=== PATIENT | male | born 1985 | race Caucasian/White ===

== ENCOUNTER 2019-02-19 00:30 | Emergency (ER) | payer OTHER ==
[~2019-02-19] VITALS: Ht 213 cm; Wt 143.0 kg
--- NOTE | 2019-02-19 00:41 | ED GI ---
General Chief Complaint: Abdominal/GI Problems Stated Complaint: ABD PAIN,VOMITING History of Present Illness Date Seen by Provider: Feb 19, 2019 Time Seen by Provider: 00:40 Initial Comments 34-year-old male presents with generalized body aches, abdominal cramping, nausea, any vomiting, diarrhea. Reports it started about 4 days ago. States that he "can't keep anything down" denies cough, shortness of breath, chest pain any other systemic complaints Allergies and Home Medications Allergies Coded Allergies: No Known Drug Allergies (Unverified , 02/19/19) Home Medications Ondansetron 4 Mg Tab.rapdis, 4 MG PO Q6H PRN for NAUSEA/VOMITING Prescribed by: JORGE CUNNINGHAM on 02/19/19 0155 Patient Home Medication List Home Medication List Reviewed: Yes Review of Systems Review of Systems Constitutional: No chills, No fever; malaise Respiratory: Denies Cough, Denies SOA at Rest Cardiovascular: Denies Chest Pain Gastrointestinal: Abdominal Pain, Diarrhea, Nausea, Vomiting Musculoskeletal: see HPI Skin: see HPI Psychiatric/Neurological: See HPI Endocrine: See HPI Past Mlwrdlj-Sldyii-Ogable Hx Past Med/Social Hx: Reviewed Nursing Past Med/Soc Hx Patient Social History Recent Foreign Travel: No Contact w/Someone Who Travel: No Physical Exam Vital Signs Vital Signs - First Documented 02/19/19 00:41 Temp 36.5 Pulse 111 Resp 18 B/P (MAP) 152/90 (110) Pulse Ox 96 O2 Delivery Room Air Capillary Refill : Height/Weight/BMI Height: '" Weight: lbs. oz. kg; BMI Method: General Appearance: no apparent distress Neck: full range of motion, supple Respiratory: chest non-tender Cardiovascular: normal peripheral pulses, regular rate, rhythm Gastrointestinal: soft, tenderness (generalized) Extremities: non-tender, normal inspection Neurologic/Psychiatric: director of revenue II-XII nml as tested, normal mood/affect Skin: normal color, warm/dry Progress/Results/Core Measures Results/Orders Lab Results Laboratory Tests Test 02/19/19 00:50 Range/Units White Blood Count 9.6 4.3-11.0 10^3/uL Red Blood Count 6.44 H 4.35-5.85 10^6/uL Hemoglobin 18.5 H 13.3-17.7 G/DL Hematocrit 51 40-54 % Mean Corpuscular Volume 79 L 80-99 FL Mean Corpuscular Hemoglobin 29 25-34 PG Mean Corpuscular Hemoglobin Concent 36 32-36 G/DL Red Cell Distribution Width 12.8 10.0-14.5 % Platelet Count 273 130-400 10^3/uL Mean Platelet Volume 10.6 H 7.4-10.4 FL Neutrophils (%) (Auto) 71 42-75 % Lymphocytes (%) (Auto) 18 12-44 % Monocytes (%) (Auto) 7 0-12 % Eosinophils (%) (Auto) 3 0-10 % Basophils (%) (Auto) 1 0-10 % Neutrophils # (Auto) 6.9 1.8-7.8 X 10^3 Lymphocytes # (Auto) 1.7 1.0-4.0 X 10^3 Monocytes # (Auto) 0.7 0.0-1.0 X 10^3 Eosinophils # (Auto) 0.3 0.0-0.3 10^3/uL Basophils # (Auto) 0.1 0.0-0.1 10^3/uL Sodium Level 132 L 135-145 MMOL/L Potassium Level 5.3 H 3.6-5.0 MMOL/L Chloride Level 94 L 98-107 MMOL/L Carbon Dioxide Level 26 21-32 MMOL/L Anion Gap 12 5-14 MMOL/L Blood Urea Nitrogen 18 7-18 MG/DL Creatinine 0.81 0.60-1.30 MG/DL Estimat Glomerular Filtration Rate > 60 BUN/Creatinine Ratio 22 Glucose Level 359 H 70-105 MG/DL Calcium Level 8.9 8.5-10.1 MG/DL Corrected Calcium 8.5-10.1 MG/DL Total Bilirubin 2.0 H 0.1-1.0 MG/DL Aspartate Amino Transf (AST/SGOT) 35 H 5-34 U/L Alanine Aminotransferase (ALT/SGPT) 32 0-55 U/L Alkaline Phosphatase 71 40-136 U/L Total Protein 7.5 6.4-8.2 GM/DL Albumin 4.7 H 3.2-4.5 GM/DL Lipase 35 8-78 U/L My Orders Orders - CUNNINGHAM,JORGE L DO Cbc With Automated Diff (02/19/19 00:43) Comprehensive Metabolic Panel (02/19/19 00:43) Lipase (02/19/19 00:43) Acute Abd Series (02/19/19 00:43) Ondansetron Injection (Zofran Injectio (02/19/19 00:45) Ns Iv 1000 Ml (Sodium Chloride 0.9%) (02/19/19 00:43) Ed Iv/Invasive Line Start (02/19/19 00:43) Medications Given in ED Current Medications Medications Dose Ordered Sig/Jayy Route Start Time Stop Time Status Last Admin Dose Admin Ondansetron HCl 4 mg ONCE ONCE IVP 02/19/19 00:45 02/19/19 00:46 DC 02/19/19 00:50 4 MG Vital Signs/I&O 02/19/19 00:41 Temp 36.5 Pulse 111 Resp 18 B/P (MAP) 152/90 (110) Pulse Ox 96 O2 Delivery Room Air Departure Impression Primary Impression: Viral gastroenteritis Additional Impression: Mild dehydration Disposition: HOME, SELF-CARE Condition: Stable Departure-Patient Inst. Referrals: BRADLEY MARTÍNEZ MD (PCP/Family) Primary Care Physician Patient Instructions: Viral Gastroenteritis, Adult (DC), Dehydration, Adult (DC) Add. Discharge Instructions: The Emergency Department focuses on treating and ruling out life-threatening diseases. Whenever possible, a diagnosis is given. However most patient's are given an impression based on the history, physical exam, and workup during their brief time in the ER. Information about probable diagnosis and other educational material has been provided. Please take the time to read and understand this information. It is very important that he follow up with a doctor as discussed during her visit today. Failure to adhere to your follow-up instructions may result in severe disability, injury or so please make sure to keep your appointments. Please keep in mind the emergency department is not designed to be your primary care or "family doctor" and not urgent issues are best evaluated by an outpatient physician All discharge instructions reviewed with patient and/or family. Voiced understanding. Scripts Ondansetron (Ondansetron Odt) 4 Mg Tab.rapdis 4 MG PO Q6H PRN for NAUSEA/VOMITING, #30 TAB Prov: JORGE CUNNINGHAM DO 02/19/19 Work/School Note: Work Release Form Date Seen in the Emergency Department: D 2018 Return to Work: Feb 20, 2019 JORGE CUNNINGHAM DO Feb 19, 2019 00:41 POS
[2019-02-19] MEDS ORDERED: NS IV 1000 ML 1,000 ML IV STA (00:43)
[2019-02-19] MEDS ORDERED: ONDANSETRON 4 MG/2 ML (SDV) Z0FRAN IVP ONE (00:45)
[2019-02-19 01:07] LABS: BASOPHILS % (AUTO) 1 % (0-10); EOSINOPHILS % (AUTO) 3 % (0-10); HEMATOCRIT 51 % (40-54); HEMOGLOBIN 18.5 G/DL (13.3-17.7); LYMPHOCYTES % (AUTO) 18 % (12-44); MEAN CORPUSCULAR HEMOGLOBIN 29 PG (25-34); MEAN CORPUSCULAR HGB CONC 36 G/DL (32-36); MEAN CORPUSCULAR VOLUME 79 FL (80-99); MEAN PLATELET VOLUME 10.6 FL (7.4-10.4); MONOCYTES % (AUTO) 7 % (0-12); NEUTROPHILS % (AUTO) 71 % (42-75); PLATELET COUNT 273 10^3/uL (130-400); RED CELL DISTRIBUTION WIDTH 12.8 % (10.0-14.5); WHITE BLOOD COUNT 9.6 10^3/uL (4.3-11.0)
[2019-02-19 01:08] LABS: BASOPHILS # (AUTO) 0.1 10^3/uL (0.0-0.1); EOSINOPHILS # (AUTO) 0.3 10^3/uL (0.0-0.3); LYMPHOCYTES # (AUTO) 1.7 X 10^3 (1.0-4.0); MONOCYTES # (AUTO) 0.7 X 10^3 (0.0-1.0); NEUTROPHILS # (AUTO) 6.9 X 10^3 (1.8-7.8)
[2019-02-19 01:24] LABS: ALANINE AMINOTRANSFERASE 32 U/L (0-55); ALBUMIN 4.7 GM/DL (3.2-4.5); ALKALINE PHOSPHATASE 71 U/L (40-136); BUN/CREATININE RATIO 22; CALCIUM 8.9 MG/DL (8.5-10.1); CARBON DIOXIDE 26 MMOL/L (21-32); CHLORIDE 94 MMOL/L (98-107); CREATININE SERUM 0.81 MG/DL (0.60-1.30); GFR ESTIMATED > 60; GLUCOSE 359 MG/DL (70-105); LIPASE 35 U/L (8-78); POTASSIUM 5.3 MMOL/L (3.6-5.0); SODIUM 132 MMOL/L (135-145); TOTAL PROTEIN 7.5 GM/DL (6.4-8.2)
[2019-02-19] MEDS ORDERED: ONDA4TAB11 PO (01:55)
[2019-02-19 02:00] VITALS: BP 144/92
--- NOTE | 2019-02-19 05:49 | Diagnostic Imaging Report ---
CLINICAL INDICATION: Patient had nausea, vomiting, diarrhea x4 days with diffuse abdominal pain. EXAMS: X-ray of the chest PA view and x-ray of the abdomen supine and upright views. COMPARISONS: None. FINDINGS: LUNGS/ PLEURA: Lungs are clear. There is no pneumothorax. There is no pleural effusion. MEDIASTINUM: Unremarkable. PULMONARY VASCULATURE: Unremarkable. HEART: Unremarkable. BONES/ EXTRATHORACIC SOFT TISSUE: Unremarkable. ABDOMEN AND PELVIS: There are mildly air distended loops of small bowel overlying the right and left abdominal regions. There is multiple air-fluid levels seen. There is air seen across the colon and in the rectal region. There is no evidence of abdominal free air. There are no focal calcifications overlying the expected regions/ pathways of both kidneys, ureters, and bladder regions. IMPRESSION: 1: Nonspecific bowel gas pattern with mildly air distended loops of small bowel with air-fluid levels. There is also air within the colon and rectum. These findings may be related to gastroenteritis versus partial small bowel obstruction or mild ileus. 2: There is no radiographic evidence of acute cardiopulmonary process. Dictated by: Dictated on workstation # [id number]
--- OUTSIDE RECORDS SUMMARY | 2019-03-16 21:00 | XMS REPORT | Continuity of Care Document ---
Author Organization Unknown Address Unknown Phone Unavailable Allergies Active Description Code Type Severity Reaction Onset Reported/Identified Relationship to Patient Clinical Status Yes No Known Drug Allergies [id number] Drug Allergy Unknown N/A 02/19/2019 Medications There is no data. Problems Date Dx Coded Attending Type Code Diagnosis Diagnosed By 02/19/2019 CUNNINGHAM DO, JORGE L Ot A08.4 VIRAL INTESTINAL INFECTION, UNSPECIFIED 02/19/2019 CUNNINGHAM DO, JORGE L Ot E86.0 DEHYDRATION 02/19/2019 CUNNINGHAM DO, JORGE L Ot R11.2 NAUSEA WITH VOMITING, UNSPECIFIED Procedures There is no data. Results Test Result Range LIPID PANEL - 12/01/18 10:54 CHOLESTEROL, TOTAL 174 mg/dL <200 HDL CHOLESTEROL 51 mg/dL >40 TRIGLYCERIDES 138 mg/dL <150 LDL-CHOLESTEROL 99 mg/dL (calc) NRG CHOL/HDLC RATIO 3.4 (calc) <5.0 NON HDL CHOLESTEROL 123 mg/dL (calc) <13 0 CMP - 12/01/18 10:54 GLUCOSE 379 mg/dL 65-99 UREA NITROGEN (BUN) 16 mg/dL 7-25 CREATININE 0.86 mg/dL 0.60-1.35 eGFR NON-AFR. [place] 115 mL/min/1.73m2 > OR = 60 eGFR 133 mL/min/1.73m2 > OR = 60 BUN/CREATININE RATIO NOT APPLICABLE (calc) 6-22 SODIUM 133 mmol/L 135-146 POTASSIUM 4.6 mmol/L 3.5-5.3 CHLORIDE 97 mmol/L 98-110 CARBON DIOXIDE 28 mmol/L 20-32 CALCIUM 9.8 mg/dL 8.6-10.3 PROTEIN, TOTAL 6.9 g/dL 6.1-8.1 ALBUMIN 4.7 g/dL 3.6-5.1 GLOBULIN 2.2 g/dL (calc) 1.9-3.7 ALBUMIN/GLOBULIN RATIO 2.1 (calc) 1.0-2. 5 BILIRUBIN, TOTAL 2.4 mg/dL 0.2-1.2 ALKALINE PHOSPHATASE 69 U/L 40-115 AST 17 U/L 10-40 ALT 32 U/L 9-46 CBC w/MANUAL DIFF - 12/01/18 10:54 WHITE BLOOD CELL COUNT 6.8 Thousand/uL 3 .8-10.8 RED BLOOD CELL COUNT 6.23 Million/uL 4.2 0-5.80 HEMOGLOBIN 17.8 g/dL 13.2-17.1 HEMATOCRIT 52.9 % 38.5-50.0 MCV 84.9 fL 80.0-100.0 MCH 28.6 pg 27.0-33.0 MCHC 33.6 g/dL 32.0-36.0 RDW 12.8 % 11.0-15.0 PLATELET COUNT 250 Thousand/uL 140-400 MPV 10.7 fL 7.5-12.5 ABSOLUTE NEUTROPHILS 3808 cells/uL 1500- 7800 ABSOLUTE MONOCYTES 476 cells/uL 200-950 ABSOLUTE EOSINOPHILS 204 cells/uL 15-500 ABSOLUTE BASOPHILS 136 cells/uL 0-200 NEUTROPHILS 56 % NRG LYMPHOCYTES 32 % NRG MONOCYTES 7 % NRG EOSINOPHILS 3 % NRG BASOPHILS 2 % NRG ABSOLUTE LYMPHOCYTES 2176 cells/uL 850-3 900 PLATELET ESTIMATION ADEQUATE ADEQUATE CBC MORPHOLOGY NORMAL A1C - 12/01/18 10:54 HEMOGLOBIN A1c 12.0 % of total Hgb <5.7 TEST AUTHORIZATION - 12/01/18 10:54 TEST NAME: HEMOGLOBIN A1c [facility] TEST CODE: 496SB [facility] CLIENT CONTACT: BRADY AMILCAR [facility] REPORT ALWAYS MESSAGE SIGNATURE NR COMMENT NRG Complete blood count (CBC) with automate d white blood cell (WBC) differential - 02/19/19 00:50 Blood leukocytes automated count (number/volume) 9.6 10*3/uL 4.3-11.0 Blood erythrocytes automated count (number/volume) 6.44 10*6/uL 4.35-5.85 Venous blood hemoglobin measurement (mass/volume) 18.5 g/dL 13.3-17.7 Blood hematocrit (volume fraction) 51 % 40-54 Automated erythrocyte mean corpuscular volume 79 [ foz_us] 80-99 Automated erythrocyte mean corpuscular h emoglobin (mass per erythrocyte) 29 pg 25-34 Automated erythrocyte mean corpuscular h emoglobin concentration measurement (mass/volume) 36 g/dL 32-36 Automated erythrocyte distribution width ratio 12. 8 % 10.0- 14.5 Automated blood platelet count (count/volume) 273 10*3/uL 130-400 Automated blood platelet mean volume measurement 10.6 [foz_us] 7.4-10.4 Automated blood neutrophils/100 leukocytes 71 % 42-75 Automated blood lymphocytes/100 leukocytes 18 % 12-44 Blood monocytes/100 leukocytes 7 % 0-12 Automated blood eosinophils/100 leukocytes 3 % 0-10 Automated blood basophils/100 leukocytes 1 % 0-10 Blood neutrophils automated count (number/volume) 6.9 10*3 1.8-7.8 Blood lymphocytes automated count (number/volume) 1.7 10*3 1.0-4.0 Blood monocytes automated count (number/volume) 0. 7 10*3 0.0-1.0 Automated eosinophil count 0.3 10*3/uL 0 .0-0.3 Automated blood basophil count (count/volume) 0.1 10*3/uL 0.0-0.1 Comprehensive metabolic panel - 02/19/19 00:50 Serum or plasma sodium measurement (moles/volume) 132 mmol/L 135-145 Serum or plasma potassium measurement (moles/volume) 5.3 mmol/L 3.6-5.0 Serum or plasma chloride measurement (moles/volume) 94 mmol/L 98-107 Carbon dioxide 26 mmol/L 21-32 Serum or plasma anion gap determination (moles/volume) 12 mmol/L 5-14 Serum or plasma urea nitrogen measurement (mass/volume ) 18 mg/dL 7-18 Serum or plasma creatinine measurement (mass/volume) 0.81 mg/dL 0.60-1.30 Serum or plasma urea nitrogen/creatinine mass ratio 22 NRG Serum or plasma creatinine measurement w ith calculation of estimated glomerular filtration rate > NRG Serum or plasma glucose measurement (mass/volume) 359 mg/dL 70-105 Serum or plasma calcium measurement (mass/volume) 8.9 mg/dL 8.5-10.1 Serum or plasma total bilirubin measurement (mass/volu me) 2.0 mg/dL 0.1-1.0 Serum or plasma alkaline phosphatase tess surement (enzymatic activity/volume) 71 U/L 40-136 Serum or plasma aspartate aminotransfera se measurement (enzymatic activity/volume) 35 U/L 5-34 Serum or plasma alanine aminotransferase measurement (enzymatic activity/volume) 32 U/L 0-55 Serum or plasma protein measurement (mass/volume) 7.5 g/dL 6.4-8.2 Serum or plasma albumin measurement (mass/volume) 4.7 g/dL 3.2-4.5 Lipase - 02/19/19 00:50 Lipase 35 U/L 8-78 Encounters ACCT No. Visit Date/Time Discharge Status Pt. Type Provider Facility Loc./Unit Complaint [id number] 12/01/2018 11:40:00 12/01/2018 23:59: 59 CLS Outpatient BRADLEY MARTÍNEZ [facility] [id number] 12/01/2018 11:20:00 Document Registration [id number] 02/19/2019 00:34:00 019 02:00:00 DIS Emergency JORGE CUNNINGHAM DO Via [facility] ER FS ABD PAIN,VOMITING
== END 2019-02-19 02:00 | disposition home or self-care (01) ==
LOC: ER FS 00:34
DX: A08.4 Viral intestinal infection, unspecified (principal); E86.0 Dehydration
CPT/HCPCS: 36415; 74022; 80053; 83690; 85025; 96361; 96374

== ENCOUNTER → 2019-08-31 | Outpatient (CLI) | payer SELFPAY ==
[~2019-08-31] MED LIST: ONDA4TAB11 PO
== END ==
LOC: WOUNDCARE 09:37
PROVIDERS: ATTEND Surgery
DX: E11.621 Type 2 diabetes mellitus with foot ulcer (principal); E11.42 Type 2 diabetes mellitus with diabetic polyneuropathy; L97.512 Non-pressure chronic ulcer of other part of right foot with fat layer exposed; M14.671 Charcot's joint, right ankle and foot
CPT/HCPCS: 11042; A6260; G0463

== ENCOUNTER → 2019-09-07 | Outpatient (CLI) | payer SELFPAY | LOC: WOUNDCARE 10:35 | PROVIDERS: ATTEND Surgery | DX: E11.621 Type 2 diabetes mellitus with foot ulcer (principal); E11.42 Type 2 diabetes mellitus with diabetic polyneuropathy; L97.512 Non-pressure chronic ulcer of other part of right foot with fat layer exposed; M14.671 Charcot's joint, right ankle and foot; E11.52 Type 2 diabetes mellitus with diabetic peripheral angiopathy with gangrene | CPT/HCPCS: 11042 ==

== ENCOUNTER 2019-10-25 23:15 | Emergency (ER) | payer SELFPAY ==
[~2019-10-25] VITALS: Ht 213.4 cm; Wt 143.1 kg
--- OUTSIDE RECORDS SUMMARY | 2019-10-25 23:24 | XMS REPORT | Continuity of Care Document ---
Author Organization Unknown Address Unknown Phone Unavailable Allergies Active Description Code Type Severity Reaction Onset Reported/Identified Relationship to Patient Clinical Status Yes No Known Drug Allergies [id number] Drug Allergy Unknown N/A 02/19/2019 Medications There is no data. Problems Date Dx Coded Attending Type Code Diagnosis Diagnosed By 02/19/2019 BRITTANIE CUNNINGHAM DOVOR L Ot A08.4 VIRAL INTESTINAL INFECTION, UNSPECIFIED 02/19/2019 CUNNINGHAM DO JORGE L Ot E86.0 DEHYDRATION 02/19/2019 OCTAVIO BRAR JORGE L Ot R11.2 NAUSEA WITH VOMITING, UNSPECIFIED 09/09/2019 ANGE LOGAN MD, Ot E11.42 TYPE 2 DIABETES MELLITUS WITH DIABETIC P 09/09/2019 ANGE LOGAN MD Ot E11.52 TYPE 2 DIABETES W DIABETIC PERIPHERAL AN 09/09/2019 ANGE LOGAN MD, Ot E11.621 TYPE 2 DIABETES MELLITUS WITH FOOT ULCER 09/09/2019 ANGE LOGAN MD, Ot L97.512 NON-PRS CHRONIC ULCER OTH PRT RIGHT FOOT 09/09/2019 ANGE LOGAN MD, Ot M14.671 CHARCOT'S JOINT, RIGHT ANKLE AND FOOT 09/30/2019 ANGE LOGAN MD Ot E11.42 TYPE 2 DIABETES MELLITUS WITH DIABETIC P 09/30/2019 ANGE LOGAN MD Ot E11.610 TYPE 2 DIABETES MELLITUS W DIABETIC NEUR 09/30/2019 ANGE LOGAN MD Ot E11.621 TYPE 2 DIABETES MELLITUS WITH FOOT ULCER 09/30/2019 ANGE LOGAN MD Ot L97.512 NON-PRS CHRONIC ULCER OTH PRT RIGHT FOOT 10/25/2019 ANGE LOGAN MD, Ot E11.42 TYPE 2 DIABETES MELLITUS WITH DIABETIC P 10/25/2019 ANGE LOGAN MD Ot E11.621 TYPE 2 DIABETES MELLITUS WITH FOOT ULCER 10/25/2019 ANGE LOGAN MD Ot L97.512 NON-PRS CHRONIC ULCER OTH PRT RIGHT FOOT 10/25/2019 ANGE LOGAN MD, Ot M14.671 CHARCOT'S JOINT, RIGHT ANKLE AND FOOT 10/25/2019 ANGE LOGAN MD, Ot E11.42 TYPE 2 DIABETES MELLITUS WITH DIABETIC P 10/25/2019 ANGE LOGAN MD, Ot E11.52 TYPE 2 DIABETES W DIABETIC PERIPHERAL AN 10/25/2019 ANGE LOGAN MD, Ot E11.621 TYPE 2 DIABETES MELLITUS WITH FOOT ULCER 10/25/2019 ANGE LOGAN MD, Ot L97.512 NON-PRS CHRONIC ULCER OTH PRT RIGHT FOOT 10/25/2019 ANGE LOGAN MD, Ot M14.671 CHARCOT'S JOINT, RIGHT ANKLE AND FOOT 10/25/2019 ANGE LOGAN MD, Ot E11.42 TYPE 2 DIABETES MELLITUS WITH DIABETIC P 10/25/2019 ANGE LOGAN MD, Ot E11.610 TYPE 2 DIABETES MELLITUS W DIABETIC NEUR 10/25/2019 ANGE LOGAN MD, Ot E11.621 TYPE 2 DIABETES MELLITUS WITH FOOT ULCER 10/25/2019 ANGE LOGAN MD, Ot L97.512 NON-PRS CHRONIC ULCER OTH PRT RIGHT FOOT Procedures There is no data. Results Test [...] 7-25 CREATININE 0.86 mg/dL 0.60-1.35 eGFR NON-AFR. [place] 115 mL/min/1.73m2 > OR = 60 eGFR [...] - 12/01/18 10:54 TEST NAME: HEMOGLOBIN A1c [facility] TEST CODE: 496SB [facility] CLIENT CONTACT: BRADY FITZGERALD [facility] REPORT ALWAYS MESSAGE SIGNATURE NR COMMENT NRG [...] - 02/19/19 00:50 Lipase 35 U/L 8-78 A1C - 08/13/19 08:28 HEMOGLOBIN A1c 11.1 % of total Hgb <5.7 CBC - 08/27/19 09:45 WHITE BLOOD CELL COUNT 6.7 Thousand/uL 3 .8-10.8 RED BLOOD CELL COUNT 5.63 Million/uL 4.2 0-5.80 HEMOGLOBIN 16.2 g/dL 13.2-17.1 HEMATOCRIT 47.6 % 38.5-50.0 MCV 84.5 fL 80.0-100.0 MCH 28.8 pg 27.0-33.0 MCHC 34.0 g/dL 32.0-36.0 RDW 13.0 % 11.0-15.0 PLATELET COUNT 216 Thousand/uL 140-400 MPV 10.7 fL 7.5-12.5 ABSOLUTE NEUTROPHILS 4529 cells/uL 1500- 7800 ABSOLUTE LYMPHOCYTES 1608 cells/uL 850-3 900 ABSOLUTE MONOCYTES 382 cells/uL 200-950 ABSOLUTE EOSINOPHILS 141 cells/uL 15-500 ABSOLUTE BASOPHILS 40 cells/uL 0-200 NEUTROPHILS 67.6 % NRG LYMPHOCYTES 24.0 % NRG MONOCYTES 5.7 % NRG EOSINOPHILS 2.1 % NRG BASOPHILS 0.6 % NRG ESR/SED RATE - 08/27/19 09:45 SED RATE BY MODIFIED WESTERGREN 2 mm/h < OR = 15 Encounters ACCT No. Visit Date/Time Discharge Status Pt. Type Provider Facility Loc./Unit Complaint [id number] 10/22/2019 08:20:00 10/22/2019 23:59: 59 CLS Outpatient BRADLEY MARTÍNEZ [facility] [id number] 08/27/2019 09:20:00 Document Registration [id number] 08/13/2019 08:00:00 Document Registration [id number] 12/01/2018 11:20:00 Document Registration [id number] 09/14/2019 10:20:00 23:59:59 CLS Outpatient ANGE LOGAN MD [facility] [id number] 09/07/2019 10:35:00 23:59:59 CLS Outpatient ANGE LOGAN MD [facility] [id number] 08/31/2019 09:37:00 23:59:59 CLS Outpatient ANGE LOGAN MD [facility] [id number] 02/19/2019 00:34:00 02:00:00 DIS Emergency JORGE CUNNINGHAM DO [facility] ER FS ABD PAIN,VOMITING [id number] 10/25/2019 23:20:[address] Emergency GISSELLE NIELSON, GERALDO Posada [facility] ER FS FEVER/VOMITTING/RIGHT FOOT S ORE
[2019-10-25] MEDS ORDERED: CLINDAMYCIN 300 MG/2ML (CLEOCIN) VIAL IM STA (23:37)
--- NOTE | 2019-10-25 23:43 | ED General ---
General Stated Complaint: FEVER/VOMITTING/RIGHT FOOT SORE Source of Information: Patient, RN/MD Exam Limitations: No Limitations History of Present Illness Date Seen by Provider: Oct 25, 2019 Time Seen by Provider: 23:25 Initial Comments This patient is a 34-year-old male presents to the emergency department for a callus on the bottom of his right foot at the base the great toe that has been followed by wound care door that the callus in the past. Patient said he was doing well but noticed over the past couple days had redness to his foot. Patient's callus appears to have returned and patient has redness streaking up from the base the first toe. The foot. Patient lower extremity exam shows that he has missing hair below the knees. Concerning for peripheral vascular disease. This patient is 7 foot tall weighs about 350 pounds. We did discuss at length with with patient about concerns and offered a full medical screening exam including lab evaluation and IV antibiotics. Patient has declined a medical screening exam. Patient states he just needs to get back home. I did discuss at length with patient about concerns about this lesion on his foot and that this could end up costing him his leg if he did not get it treated correctly. Does not appear to have any gross infected lesion on the bottom of this callus however the callus itself does appear to be red and it be the infectious source. Patient states understanding. But again wishes just to have an IM injection of antibiotics and discharged home on antibiotics. He is agreeable for referral to podiatry. I again stressed my concern and he stated understanding nurse in the room also stressed concern since he has known the patient for several years. Patient again stated understanding. Patient still wishes to have IM injection of antibiotics and by mouth medications for home. Discussed at length with patient about different options. We'll give patient an IM injection of clindamycin and we'll place patient on clindamycin. Patient states understanding. Timing/Duration: Other (1 month) Severity: Moderate Allergies and Home Medications Allergies Coded Allergies: No Known Drug Allergies (Unverified , 02/19/19) Home Medications Ondansetron 4 Mg Tab.rapdis, 4 MG PO Q6H PRN for NAUSEA/VOMITING Prescribed by: JORGE CUNNINGHAM on 02/19/19 0155 Patient Home Medication List Home Medication List Reviewed: Yes Review of Systems Review of Systems Constitutional: No no symptoms reported, No see HPI, No chills, No diaphoresis, No dizziness, No fever, No malaise, No weakness, No weight gain, No weight loss, No other EENTM: No see HPI, No no symptoms reported, No ear discharge, No hearing loss, No ear pain, No blurred vision, No double vision, No eye pain, No tearing, No vision loss, No dental problems, No hoarseness, No mouth pain, No mouth swelling, No epistaxis, No nose congestion, No nose pain, No throat pain, No throat swelling, No other Respiratory: No no symptoms reported, No see HPI, No cough, No dyspnea on exertion, No hemoptysis, No orthopnea, No phlegm, No short of breath, No stridor, No wheezing, No other Cardiovascular: No no symptoms reported, No see HPI, No chest pain, No edema, No Hx of Intervention, No palpitations, No syncope, No vascular heart diseas, No other Gastrointestinal: No RUQ, No LUQ, No RLQ, No LLQ, No no symptoms reported, No see HPI, No abdominal pain, No constipation, No diarrhea, No dysphagia, No hematemesis, No heartburn, No jaundice, No loss of appetite, No melena, No nausea, No vomiting, No other Genitourinary: No no symptoms reported, No see HPI, No decreased output, No discharge, No dysuria, No frequency, No hematuria, No hesitancy, No incontinence, No nocturia, No pain, No other Musculoskeletal: No no symptoms reported, No see HPI, No back pain, No gout, No joint pain, No joint swelling, No muscle pain, No muscle stiffness, No muscle cramps, No muscle twitching, No muscle weakness, No neck pain, No other Skin: see HPI, change in color All Other Systems Reviewed Negative Unless Noted: Yes Past Yethtyy-Xvbsje-Jvmxnf Hx Patient Social History Type Used: Cigarettes 2nd Hand Smoke Exposure: No Recent Foreign Travel: No Contact w/Someone Who Travel: No Recent Hopitalizations: No Seasonal Allergies Seasonal Allergies: No Past Medical History Surgeries: Yes Gallbladder Respiratory: No Cardiac: Yes Hypertension Neurological: No Genitourinary: No Gastrointestinal: No Musculoskeletal: No Endocrine: Yes Diabetes, Non-Insulin dep HEENT: No Cancer: No Psychosocial: No Integumentary: No Blood Disorders: No Physical Exam Vital Signs Capillary Refill : Height, Weight, BMI Height: '" Weight: lbs. oz. kg; 31.00 BMI Method: General Appearance: No Apparent Distress, WD/WN Respiratory: Chest Non Tender, Lungs Clear, Normal Breath Sounds, No Accessory Muscle Use, No Respiratory Distress Cardiovascular: Regular Rate, Rhythm, No Edema, No Gallop, No JVD, No Murmur, Normal Peripheral Pulses Extremity: Normal Capillary Refill, Normal Inspection, Normal Range of Motion, Non Tender, No Calf Tenderness, No Pedal Edema, Inflammation, Other (patient has a large callus in the base of the right great toe on the sole. Patient has erythema and red streaking up the medial side of his right foot. Consistent with cellulitis.) Neurologic/Psychiatric: Alert, Oriented x3, No Motor/Sensory Deficits, Normal Mood/Affect Skin: Normal Color, Warm/Dry Progress/Results/Core Measures Suspected Sepsis SIRS Temperature: Pulse: Respiratory Rate: Blood Pressure / Mean: Results/Orders My Orders Orders - GERALDO PITTS MD Clindamycin Injection (Cleocin Injection (10/25/19 23:37) Vital Signs/I&O Capillary Refill : Progress Note : Time: 23:44 Progress Note We did discuss at length with with patient about concerns and offered a full medical screening exam including lab evaluation and IV antibiotics. Patient has declined a medical screening exam. Patient states he just needs to get back home. I did discuss at length with patient about concerns about this lesion on his foot and that this could end up costing him his leg if he did not get it treated correctly. Does not appear to have any gross infected lesion on the bottom of this callus however the callus itself does appear to be red and it be the infectious source. Patient states understanding. But again wishes just to have an IM injection of antibiotics and discharged home on antibiotics. He is agreeable for referral to podiatry. I again stressed my concern and he stated understanding nurse in the room also stressed concern since he has known the patient for several years. Patient again stated understanding. Patient still wishes to have IM injection of antibiotics and by mouth medications for home. Discussed at length with patient about different options. We'll give patient an IM injection of clindamycin and we'll place patient on clindamycin. Patient states understanding. Patient is to soak right foot in Epsom salt water twice daily. Pad dry apply Bactroban ointment as instructed. Continue is a callus pad with orthotic shoes. Patient is to follow-up with podiatry as instructed for further evaluation of foot. The symptoms failed to improve or worsen patient should return immediately to the emergency department. Departure Impression Primary Impression: Callus of foot Additional Impression: Cellulitis of foot Disposition: HOME, SELF-CARE Condition: Stable Departure-Patient Inst. Decision time for Depature: 23:46 Referrals: KATHLEEN GÓMEZ APRN (PCP) Primary Care Physician BRADLEY MARTÍNEZ MD (Family) Primary Care Physician Patient Instructions: Cellulitis (Skin Infection), Adult (DC), Corns and Calluses Add. Discharge Instructions: We'll give patient an IM injection of clindamycin and we'll place patient on clindamycin. Patient states understanding. Patient is to soak right foot in Epsom salt water twice daily. Pad dry apply Bactroban ointment as instructed. Continue is a callus pad with orthotic shoes. Patient is to follow-up with podiatry as instructed for further evaluation of foot. The symptoms failed to improve or worsen patient should return immediately to the emergency department. Scripts Mupirocin Calcium (Mupirocin) 15 Gm Cream..g. 15 GM TP BID, #1 TUBE 0 Refills Prov: GERALDO PITTS MD 10/25/19 Clindamycin HCl (Clindamycin HCl) 300 Mg Capsule 300 MG PO QID, #40 CAP 0 Refills Prov: GERALDO PITTS MD 10/25/19 GERALDO PITTS MD Oct 25, 2019 23:43
[2019-10-25] MEDS ORDERED: MUPI15CR11 TP (23:48)
[2019-10-25] MEDS ORDERED: CLIN300C11 PO (23:48)
--- NOTE | 2019-10-25 23:50 | NUR ---
Pt offered medical screening yet declined. Pt requested "whatever is fastest". Pt elected IM antibiotic shot and prescription.
[2019-10-26] MEDS ORDERED: ONDA4TAB11 PO
[2019-10-26] MEDS ORDERED: DICL75TA2 PO
[2019-10-26 00:05] VITALS: BP 141/87
== END 2019-10-26 00:05 | disposition home or self-care (01) ==
LOC: EDUNIT# 23:15 → ER FS 23:20
DX: L84 Corns and callosities (principal); L03.115 Cellulitis of right lower limb
CPT/HCPCS: 99284

== ENCOUNTER 2022-03-29 19:08 | Emergency (ER) | payer BC ==
[~2022-03-29 19:08] MED LIST changes: +CLIN-144 PO; +DICL75TA2 PO; +MUPI15CR11 TP
--- NOTE | 2022-03-29 19:16 | ED Integumentary General ---
General Chief Complaint: Laceration Stated Complaint: LT THUMB LAC History of Present Illness Date Seen by Provider: Mar 29, 2022 Time Seen by Provider: 19:15 Initial Comments 37-year-old male presents with left thumb laceration. Patient was working with a knife cut sheet [employer] when it slipped and he hit his left thumb. He has an avulsion approximately 1-1/2 cm by half centimeter of skin missing. He presents because he is having hard time getting to stop bleeding. He reports that he had a tetanus within the last couple years. He suffered no other injury. Allergies and Home Medications Allergies Coded Allergies: No Known Drug Allergies (Unverified , 02/19/19) Patient Home Medication List Home Medication List Reviewed: Yes Clindamycin HCl (Clindamycin HCl) 300 Mg Capsule, 300 MG PO QID Prescribed by: GERALDO PITTS on 10/25/19 2348 Diclofenac Sodium (Diclofenac Sodium) 75 Mg Tablet.dr, 75 MG PO BID Prescribed by: GERALDO PITTS on 10/26/19 0000 Mupirocin Calcium (Mupirocin) 15 Gm Cream..g., 15 GM TP BID Prescribed by: GERALDO PITTS on 10/25/19 2348 Ondansetron (Ondansetron Odt) 4 Mg Tab.rapdis, 4 MG PO Q6H PRN for NAUSEA/VOMITING Prescribed by: JORGE CUNNINGHAM on 02/19/19 0155 Ondansetron (Ondansetron Odt) 4 Mg Tab.rapdis, 4 MG PO BID Prescribed by: GERALDO PITTS on 10/26/19 0000 Review of Systems Review of Systems Constitutional: No chills, No fever EENTM: no symptoms reported Respiratory: no symptoms reported Cardiovascular: no symptoms reported Gastrointestinal: no symptoms reported Musculoskeletal: no symptoms reported Skin: see HPI Psychiatric/Neurological: No Symptoms Reported Past Elbdsku-Witssy-Gaiqol Hx Seasonal Allergies Seasonal Allergies: No Past Medical History Surgeries: Yes Gallbladder Respiratory: No Cardiac: Yes Hypertension Neurological: No Genitourinary: No Gastrointestinal: No Musculoskeletal: No Endocrine: Yes Diabetes, Non-Insulin dep HEENT: No Cancer: No Psychosocial: No Integumentary: No Blood Disorders: No Physical Exam Vital Signs Vital Signs - First Documented 03/29/22 19:10 Pulse 95 Resp 18 B/P (MAP) 160/93 (115) Pulse Ox 96 O2 Delivery Room Air Capillary Refill : General Appearance: WD/WN, no apparent distress Neck: full range of motion Cardiovascular: normal peripheral pulses, regular rate, rhythm Respiratory: no respiratory distress, no accessory muscle use Neurologic/Psychiatric: normal mood/affect, oriented x 3 Skin Problem Location: upper extremities (Left thumb) Skin Problem Character: other (Skin avulsion) Progress/Results/Core Measures Results/Orders Vital Signs/I&O 03/29/22 19:10 Pulse 95 Resp 18 B/P (MAP) 160/93 (115) Pulse Ox 96 O2 Delivery Room Air Departure Impression Primary Impression: Avulsion of skin of left thumb without complication Qualified Codes: S61.002A - Unspecified open wound of left thumb without damage to nail, initial encounter Disposition: 01 HOME, SELF-CARE Condition: Stable Departure-Patient Inst. Referrals: KATHLEEN GÓMEZ APRN (PCP) Primary Care Physician [facility] (Family) Primary Care Physician Patient Instructions: SKIN AVULSION Add. Discharge Instructions: Please keep pressure dressing on for 24 hours then keep wound dressed and clean. You may clean with warm soapy water. Return to the ER with any concerns. All discharge instructions reviewed with patient and/or family. Voiced understanding. JORGE CUNNINGHAM DO Mar 29, 2022 19:16
[2022-03-29 19:49] VITALS: BP 160/93
== END 2022-03-29 19:49 | disposition home or self-care (01) ==
LOC: EDUNIT# 19:08 → ER FS 19:09
DX: S61.002A Unspecified open wound of left thumb without damage to nail, initial encounter (principal); Z28.310 Unvaccinated for COVID-19; W26.0XXA Contact with knife, initial encounter; Y93.89 Activity, other specified